=== PATIENT | female | born 1950 | race Caucasian/White ===

== ENCOUNTER → 2016-06-15 09:20 | Outpatient (CLI) | payer MEDICARE, OTHER ==
[2015-10-15 08:10] VITALS: BMI 18.4
[~2016-06-15 09:20] MED LIST: ACETAMINOPHEN500 M1 PO; ASPIRIN EC81 M1 PO; BLACK CHERRY; CALCIUM 500 + D1 TAB PO; CINNAMON500 MG PO; FEMARA2.5 MG PO; FERROUS SULFAT325 MG PO; IBRANCE PO; LEVAQUIN250 MG; LEVAQUIN500 MG PO; MACROBID100 MG PO; MULTIPLE VITAMI1 TA1 PO; NIACIN250 M1 PO; OMEPRAZOLE20 M1 PO; PHENERGAN25 M1 PO; PREDNISONE1 MG PO; PROCRIT/EP40000 UNIT SQ; TAMOXIFEN CITRA20 MG PO; TESSALON PERLE100 MG PO; TUMERIC; ULTRAM50 MG PO; VALIUM10 MG PO; VITAMIN D3400 UNI1 PO; VITAMIN D5000 UNIT PO; ZOFRAN4 MG PO; [UNRECOGNIZED DRUG - OTHER]
== END | disposition home or self-care (01) ==
LOC: D.CT 09:20
DX: C50.911 Malignant neoplasm of unspecified site of right female breast (principal)

== ENCOUNTER → 2016-09-28 08:44 | Outpatient (CLI) | payer MEDICARE, OTHER ==
[2015-10-15 08:10] VITALS: BMI 18.4
== END | disposition home or self-care (01) ==
LOC: D.CT 08:44
DX: C50.911 Malignant neoplasm of unspecified site of right female breast (principal)

== ENCOUNTER → 2017-03-02 08:18 | Outpatient (CLI) | payer MEDICARE, OTHER ==
[2015-10-15 08:10] VITALS: BMI 18.4
== END | disposition home or self-care (01) ==
LOC: D.CT 08:18
DX: Z85.3 Personal history of malignant neoplasm of breast (principal)

== ENCOUNTER 2017-11-05 13:53 | Outpatient (CLI) | payer MEDICARE, OTHER ==
[~2017-11-05] VITALS: Ht 160 cm; Wt 54.1 kg
--- NOTE | ~2017-11-05 | HEMODYNAMI ---
PATIENT:CORBY MCGREGOR MEDICAL RECORD: [id number] : 50 LOCATION:[place] ADMISSION DATE: 11/05/17 Generatedon:11/05/201715:47 Patient name: CORBY MCGREGOR Patient #: [id number] SSN: : 1950 Date of study: 11/05/2017 Page: Of Hemodynamic Procedure Report Patient Data Patient Demographics Procedure consent was obtained First Name: CORBY Gender: Female Last Name: MECHE : 1950 [facility] Initial: [facility] Age: 67 year(s) Patient #: [id number] Race: Unknown Additional ID: [id number] Contact details [address]: [address] [place] [address] DRIVE State: [place] City: [place] Zip code: [address] Admission Admission Data Admission Date: 11/05/2017 Admission Time: 13:53 Procedure Procedure Types Cath Procedure Diagnostic Procedure Procedure Description Procedure Date Procedure Date: 11/05/2017 Procedure Start Time: 15:14 Procedure Staff Name Function Chase Godinez MD Performing Physician Ryann Haynes RT Wet Room Supervisor Brandy Morris RN Nurse Procedure Medications Medication Administration Route Dosage Lidocaine 1% added to field 20 Fentanyl I.V. 50 mcg Fentanyl I.V. 50 mcg Hemodynamics Rest Heart Rate: 93 (bpm) Snapshots Pre Cath Intra NCS Post Cath Vital Signs Time Heart Resp SPO2 etCO2 NIBP (mmHg) Rhythm Pain Sedation Rate (ipm) (%) (mmHg) Status Level (bpm) 15:07:32 93 27 100 23.9 152/89(117) NSR 0 (11) 10(A) , No pain 15:11:15 96 32 100 19.4 140/84(110) NSR 0 (11) 10(A) , No pain 15:14:54 96 39 100 19.4 143/91(112) NSR 0 (11) 10(A) , No pain 15:18:36 94 24 100 24.7 134/87(110) NSR 0 (11) 10(A) , No pain 15:22:17 92 32 100 29.9 134/85(107) NSR 0 (11) 10(A) , No pain 15:26:00 90 18 100 24.7 125/71(97) NSR 0 (11) 10(A) , No pain 15:29:39 91 35 100 21.7 130/83(105) NSR 0 (11) 10(A) , No pain 15:33:18 90 23 100 31.4 134/85(107) NSR 0 (11) 10(A) , No pain 15:37:00 89 18 100 12.7 136/80(110) NSR 0 (11) 10(A) , No pain 15:40:43 89 20 100 30.7 131/77(100) NSR 0 (11) 10(A) , No pain 15:44:26 88 21 100 30.7 134/78(104) NSR 0 (11) 10(A) , No pain Medications Time Medication Route Dose Verified Delivered Reason Notes Effectivene ss by by 15:15:46 Lidocaine added 20ml Chase Stone 1% to vial Herbert meyers MD, MD 15:15:57 Fentanyl I.V. 50 Chase Nava for [facility] Herbert Morris RN sedation 15:18:27 Fentanyl I.V. 50 Chase Nava for [facility] Herbert Morris RN sedation Procedure Log Time Note 15:04:28 Time tracking: Regular hours (M-F 7:00 - 5:00) 15:05:15 [id number] 8FR CATH DRAIN TRAY opened to sterile field. 15:05:27 Patient received from Outpatients to Alert and oriented. Tansferred to table in Supine position. 15:05:30 Signed procedure consent form obtained from patient. 15:05:40 Family in waiting room. 15:05:45 Patient NPO since Breakfast. 15:06:45 IV patent on arrival in port with D5/.45%NaCl at KVO. 15:06:51 Right abdomen area was prepped with chlora-prep and draped in sterile fashion 15:07:00 ECG and BP/O2 sat monitors applied to patient. 15:07:01 Vital chart was started 15:07:03 Baseline sample Acquired. 15:07:04 Full Disclosure recording started 15:07:05 - 15:14:03 Physician arrived 15:14:04 --------ALL STOP TIME OUT------ 15:14:05 Final Timeout: patient, procedure, and site verified with staff and physician. All members of the team are in agreement. 15:14:21 Procedure started. 15:14:28 Local anesthetic to Abdominal area with Lidocaine 1% by Chase Godinez MD.INITIAL ACCESS ONLY 15:15:46 Lidocaine 1% 20ml vial added to field was administered by Chase cruz MD; ; 15:15:57 Fentanyl 50 mcg I.V. was administered by Brandy Morris RN; for sedation ; 15:16:35 Baseline sample Acquired. 15:18:27 Fentanyl 50 mcg I.V. was administered by Brandy Morris RN; for sedation ; 15:46:00 Dermabond Pen opened to sterile field. 15:46:19 7.3 liters drained from abdomen 15:46:25 Procedure ended.(Physican Out) 15:46:42 Procedure and supply charges have been captured, reviewed, submitted an d are correct. 15:47:09 Vital chart was stopped Device Usage Item Name Manufacture Quantity Catalog Hospital Part Current Minimal Lot# / Number Charge Number Stock Stock Serial# Code [id number] CareFusion 1 [id number] 8FR CATH DRAIN TRAY Dermabond Pen Ethicon 1 [id number] Signature Audit Garland Stage Time Signature Unsigned Intra-Procedure 11/05/2017 Ryann Haynes 3:47:07 PM RT(R) [facility] [address] [place] [address]
[2017-11-05] MEDS ORDERED: DEXAMETHASONE2 MG PO (14:42)
[2017-11-05] MEDS ORDERED: ULTRAM50 MG PO (14:43)
[2017-11-05 14:52] VITALS: BP 136/86; Ht 160 cm; Wt 54.1 kg
== END 2017-11-05 17:00 | disposition home or self-care (01) ==
LOC: D.SP 13:53 → D.CT 14:00 → D.SP 14:00
DX: R18.8 Other ascites (principal); C50.919 Malignant neoplasm of unspecified site of unspecified female breast; C79.9 Secondary malignant neoplasm of unspecified site; Z01.812 Encounter for preprocedural laboratory examination

== ENCOUNTER 2017-11-11 12:28 | Outpatient (CLI) | payer MEDICARE, OTHER ==
[~2017-11-11] VITALS: Ht 160 cm; Wt 51.4 kg
[~2017-11-11 12:28] MED LIST changes: +DEXAMETHASONE2 MG PO
[2017-11-11] MEDS ORDERED: DURAGESIC1 PATCH .4 TRANSDERM (14:02)
[2017-11-11 14:06] VITALS: Ht 160 cm; Wt 51.4 kg
== END 2017-11-11 16:40 | disposition home or self-care (01) ==
LOC: D.SP 12:28 → D.CT 14:00 → D.SP 14:00
DX: R18.8 Other ascites (principal); C50.919 Malignant neoplasm of unspecified site of unspecified female breast; C79.9 Secondary malignant neoplasm of unspecified site; Z01.812 Encounter for preprocedural laboratory examination

== ENCOUNTER 2017-11-25 06:36 | Outpatient (CLI) | payer MEDICARE, OTHER ==
[~2017-11-25] VITALS: Ht 154.9 cm; Wt 49.1 kg
[~2017-11-25 06:36] MED LIST changes: +DURAGESIC1 PATCH .4 TRANSDERM
[2017-11-25 07:03] LABS: BASOPHILS 0 % (0-2); EOSINOPHILS 0 % (0-7); HEMATOCRIT 44.8 % (36.0-48.0); HEMOGLOBIN 15.3 g/dL (12-16); IMMATURE GRANULOCYTES 0.2 % (0-5); LYMPHOCYTES 5.9 % (15-50); MCHC 34.2 g/dL (31.0-37.0); MCV 90.9 fL (80.0-100.0); MEAN PLATELET VOLUME 9.5 fL (7.4-10.4); MONOCYTES 6.9 % (2-11); RBC 4.93 10x6/uL (4.00-5.40); RDW 19.5 % (11.5-14.5); WBC 5.8 10x3/uL (4.8-10.8)
[2017-11-25 07:16] LABS: ALBUMIN 2.9 g/dL (3.4-5.0); CALCIUM 7.6 mg/dL (8.5-10.1); CARBON DIOXIDE 26.7 mmol/L (21.0-32.0); CREATININE - SERUM 1.1 mg/dL (0.6-1.3); POTASSIUM - SERUM 3.7 mmol/L (3.5-5.1)
[2017-11-25 07:20] LABS: PLATELET COUNT 105 10x3/uL (130-400)
[2017-11-25 07:21] LABS: APTT 21.9 SECONDS (22.8-39.4); INR 0.98 (0.85-1.17); PROTIME 12.6 SECONDS (11.6-15.0)
[2017-11-25 07:33] VITALS: BP 159/105; Ht 154.9 cm; Wt 49.1 kg
== END 2017-11-25 12:40 | disposition home or self-care (01) ==
LOC: D.SP 06:36 → D.CT 09:00 → D.SP 12:40
PROVIDERS: Specialist
DX: R18.0 Malignant ascites (principal)

== ENCOUNTER → 2017-12-13 14:51 | Outpatient (CLI) | payer MEDICARE, OTHER ==
[2017-11-25 07:33] VITALS: BMI 20.4
[~2017-12-13 14:51] MED LIST changes: +ATIVAN0.5 MG PO; +CHRONULAC30 ML PO; +FUROSEMIDE20 MG PO; +KLOR-CON M2020 MEQ PO; +MAGNESIUM OXID420 MG PO; +MIRALAX17 GM PO; +REGLAN10 MG PO; +XELODA500 MG PO; +XIFAXAN550 MG PO
== END | disposition home or self-care (01) ==
LOC: D.US 13:00
DX: C50.012 Malignant neoplasm of nipple and areola, left female breast (principal)

== ENCOUNTER 2017-12-16 21:14 | Inpatient (IN) | payer MEDICARE, OTHER ==
[~2017-12-16] VITALS: Ht 154.9 cm; Wt 47.2 kg
--- NOTE | ~2017-12-16 | MORECARE ---
CASE MANAGEMENT DISCHARGE SUMMARY PATIENT: CORBY MCGREGOR [facility] UNIT: [id number] ADM DATE: 12/17/17 AGE: 67 : 50 SEX: F ROOM/BED: D.4480 AUTHOR: EDDI CARRANZA PHYSICIAN: REFERRING PHYSICIAN: REMINGTON RIGGS MD DATE OF SERVICE: 01/03/18 Discharge Plan Patient Name: CORBY MCGREGOR Facility: [facility]:[place] : 1950 Planned Disposition: Home with Hospice Anticipated Discharge Date: 12/30/17 Discharge Date: 12/30/2017 Expected LOS: 13 Initial Reviewer: [email or web address] Initial Review Date: 12/17/2017 Generated: 01/03/18 9:07 am Comments DCP- Discharge Planning Updated by [email or web address]: Tova Hodges on 12/30/17 3:[address]Y AT [facility] STATES THEY HAD ALL THE DOCUMENTS THEY NEEDED AND WILL LET ME KNOW IF THEY NEED SOMETHING. DCP- Discharge Planning Updated by [email or web address]: Tova Hodges on 12/30/17 3:[address] Patient Name: CORBY MCGREGOR Admission Status: ER Accout number: [id number] Admission Date: 12-17-2017 : 1950 Admission Diagnosis:SEPSIS, UNSPECIFIED ORGANISM Attending: REMINGTON RIGGS Current LOS: 13 Anticipated DC Date: 12-30-2017 Planned Disposition: Home with Hospice Primary Insurance: MEDICARE A & B Discharge Planning Comments: CM MET WITH DAUGHTER ERWIN GUSMAN AND FAMILY HAS CHOSEN TO USE [facility]. INFORMATION GIVEN TO PATIENTS DAUGHTER AND RICKY AT [facility] CALLED. HOSPICE STATES WILL MEET FAMILY AT HOME SOON THEY GET THERE. [facility] CALLED AND MEDICAL EQUIPMENT CANCELLED BECAUSE HOSPICE WILL BE SETTING IT UP. FAMILY STATES THEY ARE WAITING ON EMS NOW TO TRANSPORT HOME. CM WILL FOLLOW AND ASSIST NEEDED WITH DC PLANNING/NEEDS. Commercial Decorator: Tova Hodges DCP- Discharge Planning Updated by [email or web address]: Aileen Prescott on 12/29/17 11:[address] SPOKE WITH DENISA AT [facility], SHE IS GETTING A HOSPITAL BED, 3 AND 1 BSC AND HOME HEALTH AIDE SET UP FOR PATIENT, WE ANTICIPATE PATIENT TO BE DISCHARGED WEDNESDAY OR OVER THE WEEKEND DCP- Discharge Planning Updated by [email or web address]: Aileen Prescott on 12/22/17 9:[address] Patient Name: CORBY MCGREGOR Admission Status: ER Accout number: [id number] Admission Date: 12-17-2017 : 1950 Admission Diagnosis:SEPSIS, UNSPECIFIED ORGANISM Attending: REMINGTON RIGGS Current LOS: 5 Anticipated DC Date: Planned Disposition: Home with Home Health Primary Insurance: MEDICARE A & B Discharge Planning Comments: CM met with patient and , Asa to assess discharge planning needs. Patient lives with her who helps with her care and plans to discharge there. She is current with [facility] and PT. She has a walker, wheelchair, grab bars, shower chair. They would like a bedside commode at discharge. CM will make sure that is ordered. There is one step in her home. CM will continue to follow and assist with dc planning as needed. Commercial Decorator: Aileen Prescott DCP- Discharge Planning Updated by [email or web address]: Aileen Prescott on 12/21/17 3:[address] ATTEMPTED TO SEE PATIENT FOR ASSESSMENT, PT SLEEPING WILL TRY AGAIN AT A LATER DATE DCPIA - Discharge Planning Initial Assessment Updated by [email or web address]: Aileen Prescott on 12/22/17 10:19 am * Is the patient Alert and Oriented? Yes * How many steps to enter\exit or inside your home? * PCP * Pharmacy [facility] * Preadmission Environment Home with Family * ADLs Partial Dependent * Partial ADLs (Assistance needed) Ambulation Bathing Medication Management * Equipment Grab Bars Rolling Walker Shower Chair Walker Wheelchair * Other Equipment PLEURX DRAIN SUPPLIES * List name and contact numbers for known caregivers / representatives who currently or will assist patient after discharge: ASA (SPOUSE) [phone] * Verbal permission to speak to the caregivers and representatives has been obtained from the patient. N/A * Community resources currently utilized Home Health * Please name any agencies selected above. [facility] PT * Additional services required to return to the preadmission environment? Yes * Can the patient safely return to the preadmission environment? Yes * Has this patient been hospitalized within the prior 30 days at any hospital? No Last DP export: 12/30/17 3:36 Patient Name: CORBY MCGREGOR Page 33539 at 0807 All edits/amendments must be made on the electronic document DICTATION DATE: 01/03/18805 LIVESTOCK JUDGING COACH: DESHAUN 01/03/18805 RPT#: [id number] DC DATE:12/30/17 STATUS: DIS IN [facility] [address] [place] [address] END OF REPORT
--- NOTE | ~2017-12-16 | HP ---
PATIENT: CORBY MCGREGOR MEDICAL RECORD: [id number] ACCOUNT: [id number] LOCATION:D.MS Pearson2205 : [birth year] ADMISSION DATE: 12/17/17 PCP: No PCP HISTORY AND PHYSICAL EXAMINATION REASON FOR ADMISSION: Confusion and weakness. HISTORY OF PRESENT ILLNESS: The patient is a 67-year-old female with history of invasive lobular carcinoma of the right breast in 1999 and underwent bilateral mastectomies and breast implants. She had positive margin, had resection at that time. She has been on tamoxifen until 2010 and in 2013 she will be having symptoms of bone pain. MRI showed metastatic disease in multiple bone areas. Bone biopsy was consistent with metastatic breast cancer, ER positive at 80%, WA negative and HER2 negative. Since that time, she had had radiation therapy with Dr. Geller and developed retroperitoneal adenopathy causing hydronephrosis requiring ureteral stent placement. She has also more recently developed ascites and had Pleur-Evac placed and drained approximately 1 liter every other day. Her most recent fluid evaluation showed no evidence of metastatic cells. She is currently on Halaven and Xgeva. Last dose of that was in September. She received cisplatin and Xeloda recently. She was at her oncologist yesterday, but was hypokalemic and I was unable to have chemo. She was given IV potassium replacement. Her states she became much weaker and more confused, not making much sense. Her legs were very weak, she could not really stand on her own. For that reason, she was brought to the Emergency Room and admitted for further evaluation. PAST MEDICAL HISTORY: Hypertension. PAST SURGICAL HISTORY: Bilateral mastectomies with breast implants, port placement, Pleur-Evac placement, appendectomy. FAMILY HISTORY: Sister with breast cancer. Father of prostate cancer. ALLERGIES: None known. SOCIAL HISTORY: , living in [place]. Daughter is a general surgeon. She is nonsmoker, drinks occasional wine in the past. CURRENT MEDICATIONS: Chemotherapy as above. In addition, Reglan 10 mg t.i.d. before meals; promethazine 25 mg every 4 hours p.r.n. nausea; nitrofurantoin 100 mg p.o. Wednesday, Wednesday and Wednesday; Xeloda 500 mg p.o. b.i.d.; Duragesic 12 mcg transdermal patch every 72 hours; Ativan 0.5 mg p.o. daily p.r.n. anxiety; tramadol 50 mg every 4 hours p.r.n. pain; Lasix 20 mg p.o. daily; potassium chloride 20 mEq p.o. daily; lactulose 15 cc p.o. b.i.d. p.r.n. constipation; Zofran 4 mg p.o. every 6 hours p.r.n. mild nausea; omeprazole 20 mg p.o. daily; MiraLax 17 grams p.o. daily; acidophilus 460mg p.o. daily; magnesium oxide 420 mg p.o. daily; dexamethasone 2 mg p.o. daily; vitamin D 5000 units p.o. daily. REVIEW OF SYSTEMS: GENERAL: She has been fatigued for some time, but much worse in the last 24 hours. Denies any fever. HEENT: Denies headache, visual changes, hearing difficulty, sore throat or mouth ulcers. RESPIRATORY: Denies shortness of breath or cough. CARDIAC: Denies chest pain, palpitations. Has mild edema in her ankles and HISTORY AND PHYSICAL [id number] MECHECORBY LALI feet at times she says. GASTROINTESTINAL: She has had nausea, but no recent vomiting. She has had some intermittent constipation. She denies abdominal pain, but admits to abdominal distention that requires paracentesis on every other day basis. GYNECOLOGIC: No vaginal bleeding. GENITOURINARY: Says she has intermittent urgency, but no dysuria. ENDOCRINE: Denies polyuria, polydipsia, heat or cold intolerance. PSYCHIATRIC: Denies depressed mood. SKIN: Denies pruritus or itch or rash. PHYSICAL EXAMINATION: VITAL SIGNS: Pulse 100, temperature 96.6 Fahrenheit, respirations are 18, blood pressure 156/102, sat 100% on room air. GENERAL: The patient is frail-appearing, awake and answering question, recognizes me and was confused about recent events. HEENT: Normocephalic. Eyes are clear. She has alopecia totalis. Oropharynx unremarkable. NECK: Supple. CHEST: Port noted in the right upper chest. Bilateral breasts implants are noted. LUNGS: Clear. HEART: Tachycardic without murmur. ABDOMEN: Mildly distended without tenderness. Bowel sounds are active. EXTREMITIES: A 2+ mild pedal edema and 1+ pretibial edema of the knees bilaterally. INTEGUMENT: Healed scars diffusely. Surgical scars are well healed. NEUROLOGIC: The patient is oriented to person and place, but not to time. She cannot subtract serial sevens. She is confused about events yesterday. She has been extremely weak and had trouble walking and maintaining her balance. Motor strength in lower extremities is 1+ bilaterally. Reflexes are 1+ symmetric in the upper and lower extremities. Gait was not tested. LABORATORY AND DIAGNOSTIC DATA: His white count of 3900, 89 polys, 8 lymphs, H&H 11.3 and 31.6, platelet count of 68,000. Chemistry: BUN and creatinine are 52 and 1.7. Lactic acid is 2.6, calcium 7, albumin and protein are both low as well at 2.2 and 5.1, CPK-MB is 4.5. Troponins is 0.058. TSH elevated at 4.55. D-dimer was 15.85, elevated. INR is 1.32. Urine is cloudy, small ketones, 1+ leukocyte esterase, greater than 50 red cells per high power field, 5 to 10 white cells per high power field. Chest x-ray showed bilateral breast implants, and port and Pleur-Evac noted. Humerus are mottled suggesting metastatic disease. I do not see infiltrate. Cardiac silhouette is normal. 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 PLAN: We will cautiously hydrate, give antiemetics. She has been cultured blood and urine, placed on Rocephin empirically. We will consult her oncologist, Dr. Castellon. Concerning further workup, may need MRI of brain. Discussed with her . TRANSINT:[id number] Voice Confirmation ID: [id number] DOCUMENT ID: [id number] HISTORY AND PHYSICAL [id number] CORBY MCGREGOR TIMOTHY MD at 0727 CC: [id number] DICTATION DATE: 12/17/17742 RESIZER OPERATOR: 12/17/17 0930 ADM IN [place] [address] [place] [address]
--- NOTE | ~2017-12-16 | MORECARE ---
CASE MANAGEMENT DISCHARGE SUMMARY PATIENT: CORBY MCGREGOR [facility] UNIT: [id number] ADM DATE: 12/17/17 AGE: 67 : 50 SEX: F ROOM/BED: D.2106 AUTHOR: EDDI CARRANZA PHYSICIAN: REFERRING PHYSICIAN: REMINGTON RIGGS MD DATE OF SERVICE: 12/30/17 Discharge Plan Patient Name: CORBY MCGREGOR Facility: [facility]:[place] : 1950 Planned Disposition: Home with Hospice Anticipated Discharge Date: 12/30/17 Discharge Date: Expected LOS: 13 Initial Reviewer: [email or web address] Initial Review Date: 12/17/2017 Generated: 12/30/17 5:26 pm Comments DCP- Discharge Planning Updated by [email or web address]: Tova Hodges on 12/30/17 3:[address] Patient Name: CORBY MCGREGOR Admission Status: ER Accout number: [id number] Admission Date: 12-17-2017 : 1950 Admission Diagnosis:SEPSIS, UNSPECIFIED ORGANISM Attending: REMINGTON RIGGS Current LOS: 13 Anticipated DC Date: 12-30-2017 Planned Disposition: Home with Hospice Primary Insurance: MEDICARE A & B Discharge Planning Comments: CM MET WITH DAUGHTER ERWIN GUSMAN AND FAMILY HAS CHOSEN TO USE [facility]. INFORMATION GIVEN TO PATIENTS CARLOS AND RICKY AT [facility] CALLED. HOSPICE STATES WILL MEET FAMILY AT HOME SOON THEY GET THERE. [facility] CALLED AND MEDICAL EQUIPMENT CANCELLED BECAUSE HOSPICE WILL BE SETTING IT UP. FAMILY STATES THEY ARE WAITING ON EMS NOW TO TRANSPORT HOME. CM WILL FOLLOW AND ASSIST NEEDED WITH DC PLANNING/NEEDS. Research Manufacturing Operator: Tova Hodges DCP- Discharge Planning Updated by [email or web address]: Aileen Prescott on 12/29/17 11:[address] SPOKE WITH DENISA AT [facility], SHE IS GETTING A HOSPITAL BED, 3 AND 1 BSC AND HOME HEALTH AIDE SET UP FOR PATIENT, WE ANTICIPATE PATIENT TO BE DISCHARGED WEDNESDAY OR OVER THE WEEKEND DCP- Discharge Planning Updated by [email or web address]: Aileen Prescott on 12/22/17 9:[address] Patient Name: CORBY MCGREGOR Admission Status: ER Accout number: [id number] Admission Date: 12-17-2017 : 1950 Admission Diagnosis:SEPSIS, UNSPECIFIED ORGANISM Attending: REMINGTON RIGGS Current LOS: 5 Anticipated DC Date: Planned Disposition: Home with Home Health Primary Insurance: MEDICARE A & B Discharge Planning Comments: CM met with patient and , Asa to assess discharge planning needs. Patient lives with her who helps with her care and plans to discharge there. She is current with [facility] and PT. She has a walker, wheelchair, grab bars, shower chair. They would like a bedside commode at discharge. CM will make sure that is ordered. There is one step in her home. CM will continue to follow and assist with dc planning as needed. Research Manufacturing Operator: Aileen Prescott DCP- Discharge Planning Updated by [email or web address]: Aileen Prescott on 12/21/17 3:[address] ATTEMPTED TO SEE PATIENT FOR ASSESSMENT, PT SLEEPING WILL TRY AGAIN AT A LATER DATE DCPIA - Discharge Planning Initial Assessment Updated by [email or web address]: Aileen Prescott on 12/22/17 10:19 am * Is the patient Alert and Oriented? Yes * How many steps to enter\exit or inside your home? * PCP * Pharmacy [facility] * Preadmission Environment Home with Family * ADLs Partial Dependent * Partial ADLs (Assistance needed) Ambulation Bathing Medication Management * Equipment Grab Bars Rolling Walker Shower Chair Walker Wheelchair * Other Equipment PLEURX DRAIN SUPPLIES * List name and contact numbers for known caregivers / representatives who currently or will assist patient after discharge: ASA (SPOUSE) [phone] * Verbal permission to speak to the caregivers and representatives has been obtained from the patient. N/A * Community resources currently utilized Home Health * Please name any agencies selected above. [facility] PT * Additional services required to return to the preadmission environment? Yes * Can the patient safely return to the preadmission environment? Yes * Has this patient been hospitalized within the prior 30 days at any hospital? No Last DP export: 12/29/17 11:56 Patient Name: CORBY MCGREGOR Page 35160 at 1626 All edits/amendments must be made on the electronic document DICTATION DATE: 10/1625 CELL POURER: DM 12/30/171625 RPT#: [id number] PR DATE: STATUS: ADM IN [facility] [address] [place] [address] END OF REPORT
--- NOTE | ~2017-12-16 | MORECARE ---
CASE MANAGEMENT DISCHARGE SUMMARY PATIENT: CORBY MCGREGOR [facility] UNIT: [id number] ADM DATE: 12/17/17 AGE: 67 : 50 SEX: F ROOM/BED: D.4788 AUTHOR: EDDI CARRANZA PHYSICIAN: REFERRING PHYSICIAN: REMINGTON RIGGS MD DATE OF SERVICE: 12/30/17 Discharge Plan Patient Name: CORBY MCGREGOR Facility: [facility]:[place] : 1950 Planned Disposition: Home with Hospice Anticipated Discharge Date: 12/30/17 Discharge Date: Expected LOS: 13 Initial Reviewer: [email or web address] Initial Review Date: 12/17/2017 Generated: 12/30/17 5:36 pm Comments DCP- Discharge Planning Updated by [email or web address]: Tova Hodges on 12/30/17 3:[address] RICKY AT [facility] STATES THEY HAD ALL THE DOCUMENTS THEY NEEDED AND WILL LET ME KNOW IF THEY NEED SOMETHING. DCP- Discharge Planning Updated by [email or web address]: Tova Hodges on 12/30/17 3:[address] Patient Name: CORBY MCGREGOR Admission Status: ER Accout number: [id number] Admission Date: 12-17-2017 : 1950 Admission Diagnosis:SEPSIS, UNSPECIFIED ORGANISM Attending: REMINGTON RIGGS Current LOS: 13 Anticipated DC Date: 12-30-2017 Planned Disposition: Home with Hospice Primary Insurance: MEDICARE A & B Discharge Planning Comments: CM MET WITH DAUGHTER ERWIN GUSMAN AND FAMILY HAS CHOSEN TO USE [facility]. INFORMATION GIVEN TO PATIENTS DAUGHTER AND RICKY AT [facility] CALLED. HOSPICE STATES WILL MEET FAMILY AT HOME SOON THEY GET THERE. [facility] CALLED AND MEDICAL EQUIPMENT CANCELLED BECAUSE HOSPICE WILL BE SETTING IT UP. FAMILY STATES THEY ARE WAITING ON EMS NOW TO TRANSPORT HOME. CM WILL FOLLOW AND ASSIST NEEDED WITH DC PLANNING/NEEDS. Honeycomb Decapper: Tova Hodges DCP- Discharge Planning Updated by [email or web address]: Aileen Prescott on 12/29/17 11:[address] SPOKE WITH DENISA AT [facility], SHE IS GETTING A HOSPITAL BED, 3 AND 1 BSC AND HOME HEALTH AIDE SET UP FOR PATIENT, WE ANTICIPATE PATIENT TO BE DISCHARGED WEDNESDAY OR OVER THE WEEKEND DCP- Discharge Planning Updated by [email or web address]: Aileen Prescott on 12/22/17 9:[address] Patient Name: CORBY MCGREGOR Admission Status: ER Accout number: [id number] Admission Date: 12-17-2017 : 1950 Admission Diagnosis:SEPSIS, UNSPECIFIED ORGANISM Attending: REMINGTON RIGGS Current LOS: 5 Anticipated DC Date: Planned Disposition: Home with Home Health Primary Insurance: MEDICARE A & B Discharge Planning Comments: CM met with patient and , Asa to assess discharge planning needs. Patient lives with her who helps with her care and plans to discharge there. She is current with [facility] and PT. She has a walker, wheelchair, grab bars, shower chair. They would like a bedside commode at discharge. CM will make sure that is ordered. There is one step in her home. CM will continue to follow and assist with dc planning as needed. Honeycomb Decapper: Aileen Prescott DCP- Discharge Planning Updated by [email or web address]: Aileen Prescott on 12/21/17 3:[address] ATTEMPTED TO SEE PATIENT FOR ASSESSMENT, PT SLEEPING WILL TRY AGAIN AT A LATER DATE DCPIA - Discharge Planning Initial Assessment Updated by [email or web address]: Aileen Prescott on 12/22/17 10:19 am * Is the patient Alert and Oriented? Yes * How many steps to enter\exit or inside your home? * PCP * Pharmacy [facility] * Preadmission Environment Home with Family * ADLs Partial Dependent * Partial ADLs (Assistance needed) Ambulation Bathing Medication Management * Equipment Grab Bars Rolling Walker Shower Chair Walker Wheelchair * Other Equipment PLEURX DRAIN SUPPLIES * List name and contact numbers for known caregivers / representatives who currently or will assist patient after discharge: ASA (SPOUSE) [phone] * Verbal permission to speak to the caregivers and representatives has been obtained from the patient. N/A * Community resources currently utilized Home Health * Please name any agencies selected above. [facility] PT * Additional services required to return to the preadmission environment? Yes * Can the patient safely return to the preadmission environment? Yes * Has this patient been hospitalized within the prior 30 days at any hospital? No Last DP export: 12/30/17 3:26 Patient Name: CORBY MCGREGOR Page [id number] at 1636 All edits/amendments must be made on the electronic document DICTATION DATE: 12/30/171635 COOKING APPLIANCE REPAIR TECHNICIAN: DESHAUN 12/30/171635 RPT#: [id number] DC DATE: STATUS: ADM IN [facility] [address] [place] [address] END OF REPORT
--- NOTE | ~2017-12-16 | MORECARE ---
CASE MANAGEMENT DISCHARGE SUMMARY PATIENT: CORBY MCGREGOR [facility] UNIT: [id number] ADM DATE: 12/17/17 AGE: 67 : 50 SEX: F ROOM/BED: D.6008 AUTHOR: EDDI CARRANZA PHYSICIAN: REFERRING PHYSICIAN: REMINGTON RIGGS MD DATE OF SERVICE: 12/29/17 Discharge Plan Patient Name: CORBY MCGREGOR Facility: [facility]:[place] : 1950 Planned Disposition: Home with Home Health Anticipated Discharge Date: Discharge Date: Expected LOS: Initial Reviewer: [email or web address] Initial Review Date: 12/17/2017 Generated: 12/29/17 1:56 pm Comments DCP- Discharge Planning Updated by [email or web address]: Aileen Prescott on 12/29/17 11:[address] SPOKE WITH DENISA AT [facility], SHE IS GETTING A HOSPITAL BED, 3 AND 1 BSC AND HOME HEALTH AIDE SET UP FOR PATIENT, WE ANTICIPATE PATIENT TO BE DISCHARGED WEDNESDAY OR OVER THE WEEKEND DCP- Discharge Planning Updated by [email or web address]: Aileen Prescott on 12/22/17 9:[address] Patient Name: CORBY MCGREGOR Admission Status: ER Accout number: [id number] Admission Date: 12-17-2017 : 1950 Admission Diagnosis:SEPSIS, UNSPECIFIED ORGANISM Attending: REMINGTON RIGGS Current LOS: 5 Anticipated DC Date: Planned Disposition: Home with Home Health Primary Insurance: MEDICARE A & B Discharge Planning Comments: CM met with patient and Asa to assess discharge planning needs. Patient lives with her who helps with her care and plans to discharge there. She is current with [facility] and PT. She has a walker, wheelchair, grab bars, shower chair. They would like a bedside commode at discharge. CM will make sure that is ordered. There is one step in her home. CM will continue to follow and assist with dc planning as needed. Laundry Sorter: Aileen Prescott DCP- Discharge Planning Updated by [email or web address]: Aileen Prescott on 12/21/17 3:[address] ATTEMPTED TO SEE PATIENT FOR ASSESSMENT, PT SLEEPING WILL TRY AGAIN AT A LATER DATE DCPIA - Discharge Planning Initial Assessment Updated by [email or web address]: Aileen Prescott on 12/22/17 10:19 am * Is the patient Alert and Oriented? Yes * How many steps to enter\exit or inside your home? * PCP [place] * Pharmacy [facility] * Preadmission Environment Home with Family * ADLs Partial Dependent * Partial ADLs (Assistance needed) Ambulation Bathing Medication Management * Equipment Grab Bars Rolling Walker Shower Chair Walker Wheelchair * Other Equipment [employer] * List name and contact numbers for known caregivers / representatives who currently or will assist patient after discharge: ASA (SPOUSE) [phone] * Verbal permission to speak to the caregivers and representatives has been obtained from the patient. N/A * Community resources currently utilized Home Health * Please name any agencies selected above. [facility] PT * Additional services required to return to the preadmission environment? Yes * Can the patient safely return to the preadmission environment? Yes * Has this patient been hospitalized within the prior 30 days at any hospital? No Last DP export: 12/22/17 9:26 Patient Name: CORBY MCGREGOR Page [id number] at 1256 All edits/amendments must be made on the electronic document DICTATION DATE: 12/29/171254 RETIREMENT OFFICER: DESHAUN 12/29/171254 RPT#: [id number] DC DATE: STATUS: ADM IN [facility] [address] [place] [address] END OF REPORT
[~2017-12-16 21:14] MED LIST changes: -ATIVAN0.5 MG PO; -CHRONULAC30 ML PO; -FUROSEMIDE20 MG PO; -KLOR-CON M2020 MEQ PO; -MAGNESIUM OXID420 MG PO; -MIRALAX17 GM PO; -REGLAN10 MG PO; -XELODA500 MG PO; -XIFAXAN550 MG PO
[2017-12-16] MEDS ORDERED: REGLAN10 MG PO (21:26)
[2017-12-16] MEDS ORDERED: FUROSEMIDE20 MG PO (21:26)
[2017-12-16] MEDS ORDERED: CHRONULAC30 ML PO (21:27)
[2017-12-16] MEDS ORDERED: XELODA500 MG PO (21:27)
[2017-12-16] MEDS ORDERED: MIRALAX17 GM PO (21:27)
[2017-12-16] MEDS ORDERED: MAGNESIUM OXID420 MG PO (21:27)
[2017-12-16] MEDS ORDERED: KLOR-CON M2020 MEQ PO (21:28)
[2017-12-16] MEDS ORDERED: ATIVAN0.5 MG PO (21:28)
[2017-12-16 21:30] VITALS: BP 156/102
[2017-12-16 22:43] VITALS: BP 157/105
[2017-12-16 22:59] LABS: BASOPHILS 0 % (0-2); EOSINOPHILS 0 % (0-7); HEMATOCRIT 31.6 % (36.0-48.0); HEMOGLOBIN 11.3 g/dL (12-16); IMMATURE GRANULOCYTES 0.3 % (0-5); LYMPHOCYTES 8.7 % (15-50); MCH 31.9 pg (26.0-34.0); MCHC 35.8 g/dL (31.0-37.0); MCV 89.3 fL (80.0-100.0); MEAN PLATELET VOLUME 10.3 fL (7.4-10.4); MONOCYTES 1.8 % (2-11); NEUTROPHILS 89.2 % (40-80); PLATELET COUNT 68 10x3/uL (130-400); RBC 3.54 10x6/uL (4.00-5.40); RDW 21.7 % (11.5-14.5); WBC 3.9 10x3/uL (4.8-10.8)
[2017-12-16 23:09] LABS: INR 1.32 (0.85-1.17); PROTIME 15.9 SECONDS (11.6-15.0)
[2017-12-16 23:10] LABS: APTT 48.5 SECONDS (22.8-39.4)
[2017-12-16 23:17] LABS: D-DIMER-QUANTITATIVE 15.85 ug/mLFEU (0.20-0.54)
[2017-12-16 23:19] LABS: PLATELET ESTIMATE DECREASED
[2017-12-16 23:22] LABS: ALBUMIN 2.2 g/dL (3.4-5.0); ALKALINE PHOSPHATASE 122 U/L (46-116); ALT (SGPT) 31 U/L (10-68); BILIRUBIN - TOTAL 0.96 mg/dL (0.2-1.3); CALC OSMOLALITY 291 mosm/kg (275-300); CHLORIDE - SERUM 99 mmol/L (98-107); CREATININE - SERUM 1.7 mg/dL (0.6-1.3); GLUCOSE 171 mg/dL (74-106); POTASSIUM - SERUM 3.7 mmol/L (3.5-5.1); PROTEIN - SERUM 5.1 g/dL (6.4-8.2); SODIUM 137 mmol/L (136-145); UREA NITROGEN 52 mg/dL (7-18); eGFR NON AFRICAN AMERICAN 32 mL/min (90-120)
[2017-12-16 23:26] LABS: CKMB 4.5 U/L (0.0-3.6); CREATINE KINASE 81 UL (21-215); THYROID STIMULATING HORMONE 4.55 uIU/mL (0.36-3.74); TROPONIN-I 0.058 ng/mL (0.000-0.060)
[2017-12-17] VITALS (8 sets, daily range): BP systolic 136–173; BP diastolic 85–95; Ht 154.9 cm; Wt 47.2 kg
[2017-12-17 00:30] LABS: APPEARANCE CLOUDY (CLEAR); BILIRUBIN NEGATIVE (NEGATIVE); COLOR YELLOW (YELLOW); GLUCOSE NEGATIVE (NEGATIVE); KETONE SMALL mg/dL (NEGATIVE); NITRITE NEGATIVE (NEGATIVE); PROTEIN 1+ mg/dL (NEGATIVE); SPECIFIC GRAVITY 1.015 (1.005-1.020); UROBILINOGEN NORMAL (NORMAL)
[2017-12-17 00:31] LABS: BACTERIA NONE SEEN /hpf (NONE SEEN); EPITHELIAL CELLS NSEEN /hpf (0-5); RED CELLS - URINE >50 /hpf (0-5)
[2017-12-18] VITALS: BP 138/87
[2017-12-18 04:00] VITALS: BP 154/81
[2017-12-18 05:00] LABS: BASOPHILS 0 % (0-2); EOSINOPHILS 0 % (0-7); HEMATOCRIT 25.4 % (36.0-48.0); IMMATURE GRANULOCYTES 0.9 % (0-5); LYMPHOCYTES 2.6 % (15-50); MCH 30.6 pg (26.0-34.0); MCHC 34.3 g/dL (31.0-37.0); MCV 89.4 fL (80.0-100.0); MEAN PLATELET VOLUME 10.6 fL (7.4-10.4); MONOCYTES 2.7 % (2-11); NEUTROPHILS 93.8 % (40-80); RBC 2.84 10x6/uL (4.00-5.40); RDW 21.5 % (11.5-14.5)
[2017-12-18 05:05] LABS: HEMOGLOBIN 8.7 g/dL (12-16); PLATELET COUNT 51 10x3/uL (130-400); WBC 8.8 10x3/uL (4.8-10.8)
[2017-12-18 05:10] LABS: INR 1.28 (0.85-1.17); PROTIME 15.6 SECONDS (11.6-15.0)
[2017-12-18 05:19] LABS: ANION GAP 16.8 mmol/L (8-16); CREATININE - SERUM 1.6 mg/dL (0.6-1.3); POTASSIUM - SERUM 3.8 mmol/L (3.5-5.1); T4 THYROXIN - FREE 0.93 ng/dL (0.76-1.46)
[2017-12-18 05:30] LABS: CALCIUM 6.6 mg/dL (8.5-10.1)
[2017-12-18 07:00] VITALS: BP 134/86
[2017-12-18 13:22] VITALS: BP 141/88
[2017-12-18 15:46] VITALS: BP 114/72
[2017-12-18 19:58] VITALS: BP 124/79
[2017-12-19] VITALS: BP 128/77
[2017-12-19 04:00] VITALS: BP 150/89
[2017-12-19 05:34] LABS: BASOPHILS 0 % (0-2); EOSINOPHILS 0.1 % (0-7); HEMATOCRIT 22.7 % (36.0-48.0); HEMOGLOBIN 7.9 g/dL (12-16); LYMPHOCYTES 5.2 % (15-50); MCHC 34.8 g/dL (31.0-37.0); MEAN PLATELET VOLUME 11.7 fL (7.4-10.4); MONOCYTES 3.3 % (2-11); NEUTROPHILS 88.4 % (40-80); RBC 2.55 10x6/uL (4.00-5.40); RDW 21.5 % (11.5-14.5); WBC 7.1 10x3/uL (4.8-10.8)
[2017-12-19 05:35] LABS: PLATELET COUNT 36 10x3/uL (130-400)
[2017-12-19 08:30] VITALS: BP 135/91
[2017-12-19 10:24] LABS: CARBON DIOXIDE 23.2 mmol/L (21.0-32.0); CREATININE - SERUM 1.4 mg/dL (0.6-1.3)
[2017-12-19 10:25] LABS: ANION GAP 15.9 mmol/L (8-16); POTASSIUM - SERUM 3.1 mmol/L (3.5-5.1)
[2017-12-19 10:27] LABS: CALCIUM 6.2 mg/dL (8.5-10.1)
[2017-12-19 14:02] VITALS: BP 132/94
[2017-12-19 20:22] VITALS: BP 133/84
[2017-12-20 05:34] LABS: BASOPHILS 0 % (0-2); EOSINOPHILS 0.4 % (0-7); HEMATOCRIT 28.4 % (36.0-48.0); IMMATURE GRANULOCYTES 0.5 % (0-5); LYMPHOCYTES 5.2 % (15-50); MCHC 35.2 g/dL (31.0-37.0); MCV 87.9 fL (80.0-100.0); MONOCYTES 6.9 % (2-11); RBC 3.23 10x6/uL (4.00-5.40); RDW 19.5 % (11.5-14.5); WBC 5.6 10x3/uL (4.8-10.8)
[2017-12-20 05:35] LABS: PLATELET COUNT 27 10x3/uL (130-400)
[2017-12-20 05:37] LABS: APTT 23.4 SECONDS (22.8-39.4)
[2017-12-20 05:38] LABS: INR 1.39 (0.85-1.17); PROTIME 16.5 SECONDS (11.6-15.0)
[2017-12-20 05:46] LABS: ALBUMIN 2.7 g/dL (3.4-5.0); BILIRUBIN - DIRECT 0.2 mg/dL (0.00-0.30); BILIRUBIN - INDIRECT 0.51 mg/dL (0.00-1.00); BILIRUBIN - TOTAL 0.71 mg/dL (0.2-1.3); CARBON DIOXIDE 23.9 mmol/L (21.0-32.0); CREATININE - SERUM 1.3 mg/dL (0.6-1.3); PROTEIN - SERUM 4.7 g/dL (6.4-8.2)
[2017-12-20 05:48] LABS: ANION GAP 14.2 mmol/L (8-16); CALCIUM 5.9 mg/dL (8.5-10.1); POTASSIUM - SERUM 2.1 mmol/L (3.5-5.1)
[2017-12-20 05:59] VITALS: BP 159/83
[2017-12-20 08:16] VITALS: BP 140/88
[2017-12-20 16:32] VITALS: BP 120/79
[2017-12-20 20:59] VITALS: BP 132/76
[2017-12-20 22:32] LABS: MAGNESIUM - SERUM 0.5 mg/dL (1.8-2.4)
[2017-12-21 05:31] VITALS: BP 142/76
[2017-12-21 06:31] LABS: BASOPHILS 0 % (0-2); EOSINOPHILS 0.6 % (0-7); HEMATOCRIT 26.8 % (36.0-48.0); HEMOGLOBIN 9.3 g/dL (12-16); IMMATURE GRANULOCYTES 1.7 % (0-5); LYMPHOCYTES 7.1 % (15-50); MCH 30.5 pg (26.0-34.0); MCHC 34.7 g/dL (31.0-37.0); MCV 87.9 fL (80.0-100.0); MEAN PLATELET VOLUME 10.6 fL (7.4-10.4); MONOCYTES 9.4 % (2-11); NEUTROPHILS 81.2 % (40-80); PLATELET COUNT 85 10x3/uL (130-400); RBC 3.05 10x6/uL (4.00-5.40); RDW 19.6 % (11.5-14.5); WBC 3.5 10x3/uL (4.8-10.8)
[2017-12-21 06:46] LABS: CARBON DIOXIDE 22.3 mmol/L (21.0-32.0); CREATININE - SERUM 1.2 mg/dL (0.6-1.3)
[2017-12-21 06:50] LABS: ANION GAP 13.2 mmol/L (8-16); MAGNESIUM - SERUM 2.1 mg/dL (1.8-2.4)
[2017-12-21 06:52] LABS: CALCIUM 6.3 mg/dL (8.5-10.1); POTASSIUM - SERUM 2.5 mmol/L (3.5-5.1)
[2017-12-21 08:08] VITALS: BP 128/76
[2017-12-21 20:06] VITALS: BP 154/92
[2017-12-21 21:32] LABS: MAGNESIUM - SERUM 1.4 mg/dL (1.8-2.4); POTASSIUM - SERUM 3.6 mmol/L (3.5-5.1)
[2017-12-22 05:49] VITALS: BP 145/96
[2017-12-22 06:45] LABS: HEMATOCRIT 28.3 % (36.0-48.0); HEMOGLOBIN 9.8 g/dL (12-16); MCH 30.4 pg (26.0-34.0); MCHC 34.6 g/dL (31.0-37.0); MCV 87.9 fL (80.0-100.0); MEAN PLATELET VOLUME 10.4 fL (7.4-10.4); PLATELET COUNT 75 10x3/uL (130-400); RBC 3.22 10x6/uL (4.00-5.40); RDW 19.4 % (11.5-14.5)
[2017-12-22 06:48] LABS: WBC 2.3 10x3/uL (4.8-10.8)
[2017-12-22 06:52] LABS: ANION GAP 14.9 mmol/L (8-16); CARBON DIOXIDE 19.3 mmol/L (21.0-32.0); CREATININE - SERUM 1.1 mg/dL (0.6-1.3); POTASSIUM - SERUM 3.2 mmol/L (3.5-5.1)
[2017-12-22 06:53] LABS: MAGNESIUM - SERUM 1.9 mg/dL (1.8-2.4)
[2017-12-22 06:55] LABS: CALCIUM 6.3 mg/dL (8.5-10.1)
[2017-12-22 07:55] LABS: ANISOCYTOSIS OCC; EOSINOPHILS 1 % (0-7); HYPOCHROMASIA OCC; LYMPHOCYTES 12 % (15-50); MONOCYTES 12 % (2-11); NEUTROPHILS 59 % (40-80); PLATELET ESTIMATE DECREASED
[2017-12-22 08:20] VITALS: BP 138/92
[2017-12-22 17:06] VITALS: BP 140/84
[2017-12-22 20:29] VITALS: BP 141/82
[2017-12-23 03:52] LABS: CARBON DIOXIDE 20.8 mmol/L (21.0-32.0); CREATININE - SERUM 1.1 mg/dL (0.6-1.3)
[2017-12-23 03:59] LABS: BASOPHILS 0 % (0-2); EOSINOPHILS 0.3 % (0-7); HEMATOCRIT 25.9 % (36.0-48.0); IMMATURE GRANULOCYTES 0.9 % (0-5); LYMPHOCYTES 8.8 % (15-50); MCH 30.6 pg (26.0-34.0); MCHC 34.7 g/dL (31.0-37.0); MCV 88.1 fL (80.0-100.0); MEAN PLATELET VOLUME 10.3 fL (7.4-10.4); MONOCYTES 8.8 % (2-11); NEUTROPHILS 81.2 % (40-80); RBC 2.94 10x6/uL (4.00-5.40); RDW 19.5 % (11.5-14.5); WBC 3.2 10x3/uL (4.8-10.8)
[2017-12-23 04:00] LABS: ANION GAP 14.4 mmol/L (8-16); CALCIUM 6.3 mg/dL (8.5-10.1); PLATELET COUNT 45 10x3/uL (130-400); POTASSIUM - SERUM 3.2 mmol/L (3.5-5.1)
[2017-12-23 05:12] VITALS: BP 154/84
[2017-12-23 05:18] VITALS: BP 132/83
[2017-12-23 08:45] VITALS: BP 121/76
[2017-12-23 12:45] VITALS: BP 121/83
[2017-12-23 17:40] VITALS: BP 131/88
[2017-12-23 20:00] VITALS: BP 139/82
[2017-12-24] VITALS: BP 130/91
[2017-12-24 04:00] VITALS: BP 142/95
[2017-12-24 05:38] LABS: BASOPHILS 0 % (0-2); EOSINOPHILS 0.6 % (0-7); IMMATURE GRANULOCYTES 1.4 % (0-5); LYMPHOCYTES 10.7 % (15-50); MCHC 35.7 g/dL (31.0-37.0); MCV 86.7 fL (80.0-100.0); MEAN PLATELET VOLUME 10.7 fL (7.4-10.4); MONOCYTES 10.1 % (2-11); NEUTROPHILS 77.2 % (40-80); RDW 17.5 % (11.5-14.5); WBC 3.5 10x3/uL (4.8-10.8)
[2017-12-24 05:39] LABS: HEMATOCRIT 33.3 % (36.0-48.0); HEMOGLOBIN 11.9 g/dL (12-16); RBC 3.84 10x6/uL (4.00-5.40)
[2017-12-24 05:40] LABS: PLATELET COUNT 32 10x3/uL (130-400)
[2017-12-24 05:51] LABS: ANION GAP 15.8 mmol/L (8-16); CARBON DIOXIDE 18.4 mmol/L (21.0-32.0); POTASSIUM - SERUM 3.2 mmol/L (3.5-5.1)
[2017-12-24 05:53] LABS: CALCIUM 6.2 mg/dL (8.5-10.1)
[2017-12-24 09:12] VITALS: BP 145/90
[2017-12-24 14:02] VITALS: BP 154/97
[2017-12-24 16:49] VITALS: BP 148/92
[2017-12-24 17:02] LABS: MAGNESIUM - SERUM 3.1 mg/dL (1.8-2.4); POTASSIUM - SERUM 3.2 mmol/L (3.5-5.1)
[2017-12-24 20:00] VITALS: BP 150/103
[2017-12-25] VITALS: BP 159/99
[2017-12-25 04:00] VITALS: BP 154/98
[2017-12-25 05:53] LABS: BASOPHILS 0 % (0-2); EOSINOPHILS 0.3 % (0-7); HEMATOCRIT 35.5 % (36.0-48.0); HEMOGLOBIN 12.9 g/dL (12-16); IMMATURE GRANULOCYTES 8.3 % (0-5); LYMPHOCYTES 11.9 % (15-50); MCHC 36.3 g/dL (31.0-37.0); MCV 85.3 fL (80.0-100.0); MONOCYTES 7.7 % (2-11); NEUTROPHILS 71.8 % (40-80); RBC 4.16 10x6/uL (4.00-5.40); RDW 17.9 % (11.5-14.5); WBC 3.4 10x3/uL (4.8-10.8)
[2017-12-25 05:54] LABS: PLATELET COUNT 33 10x3/uL (130-400)
[2017-12-25 06:21] LABS: ANION GAP 17.7 mmol/L (8-16); CARBON DIOXIDE 16.5 mmol/L (21.0-32.0); CREATININE - SERUM 1.1 mg/dL (0.6-1.3); POTASSIUM - SERUM 3.2 mmol/L (3.5-5.1)
[2017-12-25 06:23] LABS: CALCIUM 6.4 mg/dL (8.5-10.1)
[2017-12-25 12:33] VITALS: BP 162/101
[2017-12-25 17:34] VITALS: BP 132/86
[2017-12-25 19:50] VITALS: BP 121/78
[2017-12-26] VITALS: BP 156/99
[2017-12-26 04:00] VITALS: BP 168/105
[2017-12-26 05:34] LABS: BASOPHILS 0 % (0-2); EOSINOPHILS 0.8 % (0-7); HEMATOCRIT 34.8 % (36.0-48.0); HEMOGLOBIN 12.5 g/dL (12-16); IMMATURE GRANULOCYTES 0.8 % (0-5); LYMPHOCYTES 19.1 % (15-50); MCH 30.8 pg (26.0-34.0); MCHC 35.9 g/dL (31.0-37.0); MCV 85.7 fL (80.0-100.0); NEUTROPHILS 71.3 % (40-80); RBC 4.06 10x6/uL (4.00-5.40); RDW 18.1 % (11.5-14.5); WBC 2.6 10x3/uL (4.8-10.8)
[2017-12-26 05:35] LABS: PLATELET COUNT 21 10x3/uL (130-400)
[2017-12-26 06:07] LABS: CARBON DIOXIDE 17.4 mmol/L (21.0-32.0); MAGNESIUM - SERUM 1.5 mg/dL (1.8-2.4); POTASSIUM - SERUM 3.4 mmol/L (3.5-5.1)
[2017-12-26 06:13] LABS: CALCIUM 6.2 mg/dL (8.5-10.1); PHOSPHOROUS 1.5 mg/dL (2.5-4.9)
[2017-12-26 08:27] VITALS: BP 146/102
[2017-12-26 12:18] VITALS: BP 139/97
[2017-12-26 15:53] LABS: MAGNESIUM - SERUM 1.3 mg/dL (1.8-2.4); POTASSIUM - SERUM 3.7 mmol/L (3.5-5.1)
[2017-12-26 16:49] VITALS: BP 145/80
[2017-12-26 20:00] VITALS: BP 118/69
[2017-12-27] VITALS: BP 137/79
[2017-12-27 04:00] VITALS: BP 111/72
[2017-12-27 06:37] LABS: BASOPHILS 0 % (0-2); EOSINOPHILS 0.8 % (0-7); HEMATOCRIT 28.8 % (36.0-48.0); HEMOGLOBIN 10.1 g/dL (12-16); IMMATURE GRANULOCYTES 0.8 % (0-5); MCH 30.6 pg (26.0-34.0); MCHC 35.1 g/dL (31.0-37.0); MCV 87.3 fL (80.0-100.0); MONOCYTES 12.1 % (2-11); NEUTROPHILS 58.3 % (40-80); RDW 19.2 % (11.5-14.5)
[2017-12-27 06:52] LABS: CALC OSMOLALITY 277 mosm/kg (275-300); CARBON DIOXIDE 21.3 mmol/L (21.0-32.0); CHLORIDE - SERUM 100 mmol/L (98-107); CREATININE - SERUM 0.8 mg/dL (0.6-1.3); GLUCOSE 135 mg/dL (74-106); MAGNESIUM - SERUM 1.1 mg/dL (1.8-2.4); PHOSPHOROUS 1.8 mg/dL (2.5-4.9); SODIUM 135 mmol/L (136-145); UREA NITROGEN 28 mg/dL (7-18); eGFR NON AFRICAN AMERICAN 76 mL/min (90-120)
[2017-12-27 06:54] LABS: PLATELET COUNT 122 10x3/uL (130-400); WBC 1.3 10x3/uL (4.8-10.8)
[2017-12-27 06:56] LABS: CALCIUM 6.2 mg/dL (8.5-10.1); POTASSIUM - SERUM 2.9 mmol/L (3.5-5.1)
[2017-12-27 07:47] VITALS: BP 110/74
[2017-12-27 20:18] VITALS: BP 124/75
[2017-12-28 04:11] VITALS: BP 116/63
[2017-12-28 06:05] LABS: BASOPHILS 0 % (0-2); EOSINOPHILS 0.3 % (0-7); HEMATOCRIT 29.3 % (36.0-48.0); HEMOGLOBIN 10.1 g/dL (12-16); LYMPHOCYTES 9.9 % (15-50); MCH 30.9 pg (26.0-34.0); MCHC 34.5 g/dL (31.0-37.0); MCV 89.6 fL (80.0-100.0); MEAN PLATELET VOLUME 9.9 fL (7.4-10.4); MONOCYTES 11.3 % (2-11); NEUTROPHILS 76.5 % (40-80); PLATELET COUNT 82 10x3/uL (130-400); RBC 3.27 10x6/uL (4.00-5.40); RDW 20.6 % (11.5-14.5); WBC 2.9 10x3/uL (4.8-10.8)
[2017-12-28 06:39] LABS: CREATININE - SERUM 0.9 mg/dL (0.6-1.3)
[2017-12-28 08:45] VITALS: BP 110/71
[2017-12-28 12:45] VITALS: BP 121/80
[2017-12-28 16:53] VITALS: BP 118/71
[2017-12-28 20:16] VITALS: BP 112/64
[2017-12-29 03:31] VITALS: BP 124/70
[2017-12-29 05:23] LABS: BASOPHILS 0 % (0-2); EOSINOPHILS 0.9 % (0-7); HEMATOCRIT 28.2 % (36.0-48.0); HEMOGLOBIN 9.8 g/dL (12-16); IMMATURE GRANULOCYTES 1.2 % (0-5); LYMPHOCYTES 10.2 % (15-50); MCH 31.4 pg (26.0-34.0); MCHC 34.8 g/dL (31.0-37.0); MCV 90.4 fL (80.0-100.0); MEAN PLATELET VOLUME 10.1 fL (7.4-10.4); MONOCYTES 9.6 % (2-11); NEUTROPHILS 78.1 % (40-80); RBC 3.12 10x6/uL (4.00-5.40); RDW 21.3 % (11.5-14.5); WBC 3.3 10x3/uL (4.8-10.8)
[2017-12-29 05:36] LABS: PLATELET COUNT 50 10x3/uL (130-400)
[2017-12-29 08:42] VITALS: BP 124/70
[2017-12-29 08:50] LABS: % SATURATION 90 % (15-55); IRON 225 ug/dl (35-150); TOTAL IRON BIND CAPACITY 248 ug/dl (260-445); UNSAT IRON BIND CAPACITY 23 ug/dl (150-375)
[2017-12-29 13:03] VITALS: BP 129/85
[2017-12-29 15:45] VITALS: BP 130/83
[2017-12-29 15:49] LABS: ANION GAP 10.8 mmol/L (8-16); CARBON DIOXIDE 24.5 mmol/L (21.0-32.0); CREATININE - SERUM 0.9 mg/dL (0.6-1.3); POTASSIUM - SERUM 4.3 mmol/L (3.5-5.1)
[2017-12-29 15:51] LABS: CALCIUM 6.4 mg/dL (8.5-10.1)
[2017-12-29 21:47] VITALS: BP 136/94
[2017-12-30 00:58] VITALS: BP 124/80
[2017-12-30 05:11] VITALS: BP 129/83
[2017-12-30 06:11] LABS: BASOPHILS 0 % (0-2); EOSINOPHILS 0.5 % (0-7); HEMATOCRIT 29.8 % (36.0-48.0); HEMOGLOBIN 10.4 g/dL (12-16); IMMATURE GRANULOCYTES 0.5 % (0-5); LYMPHOCYTES 10.8 % (15-50); MCH 32.1 pg (26.0-34.0); MCHC 34.9 g/dL (31.0-37.0); MONOCYTES 8.7 % (2-11); NEUTROPHILS 79.5 % (40-80); PLATELET COUNT 52 10x3/uL (130-400); RBC 3.24 10x6/uL (4.00-5.40); RDW 22.1 % (11.5-14.5); WBC 3.9 10x3/uL (4.8-10.8)
[2017-12-30 06:38] LABS: ANION GAP 14.4 mmol/L (8-16); BILIRUBIN - DIRECT 0.3 mg/dL (0.00-0.30); BILIRUBIN - INDIRECT 0.54 mg/dL (0.00-1.00); BILIRUBIN - TOTAL 0.84 mg/dL (0.2-1.3); CARBON DIOXIDE 21.9 mmol/L (21.0-32.0); POTASSIUM - SERUM 4.3 mmol/L (3.5-5.1); PROTEIN - SERUM 4.5 g/dL (6.4-8.2)
[2017-12-30 06:43] LABS: CALCIUM 6.3 mg/dL (8.5-10.1)
[2017-12-30 09:10] VITALS: BP 121/85
[2017-12-30 10:19] LABS: FOLATE (FOLIC ACID) - SERUM 4.7 ng/mL (>3.0)
[2017-12-30 12:45] VITALS: BP 124/98
[2017-12-30] MEDS ORDERED: XIFAXAN550 MG PO (18:01)
== END 2017-12-30 18:44 | disposition home health service (06) | DRG 441 ==
LOC: D.ER 21:14 → D.MS 12-17 00:38
PROVIDERS: Family Medicine; Internal Medicine Hematology & Oncology
DX: K72.90 Hepatic failure, unspecified without coma (principal); D61.810 Antineoplastic chemotherapy induced pancytopenia; N17.9 Acute kidney failure, unspecified; C79.51 Secondary malignant neoplasm of bone; R18.8 Other ascites; D68.4 Acquired coagulation factor deficiency; E87.2 Acidosis; C50.919 Malignant neoplasm of unspecified site of unspecified female breast; Z66 Do not resuscitate; K74.60 Unspecified cirrhosis of liver; D63.0 Anemia in neoplastic disease; N18.9 Chronic kidney disease, unspecified; D63.1 Anemia in chronic kidney disease; E87.6 Hypokalemia; R53.1 Weakness